=== PATIENT | female | born 1975 | race Caucasian/White ===

== ENCOUNTER 2016-05-14 10:54 | Emergency (ER) | payer OTHER ==
--- NOTE | 2016-05-14 12:28 | RAD ---
KNEE- LEFT 4 OR MORE VIEWS COMPARISON: None. HISTORY: Fall with left knee medial pain. FINDINGS: Views: Left knee AP, internal rotation, external rotation, and lateral Alignment: Normal. Bones: No fracture. Joints: Normal. Soft tissues: Incidentally noted tiny ossicle anterior to the patella. IMPRESSION: 1. Normal study. No fracture.
[2016-05-14] MEDS ORDERED: IBUPROFEN 600 MG TABLET ONE (12:40)
[2016-05-14] MEDS ORDERED: ACETAMINOPHEN 325 MG TABLET ONE (12:41)
== END 2016-05-14 13:28 | disposition home or self-care (01) ==
LOC: ED 10:54
DX: M25.562 Pain in left knee (principal); J45.909 Unspecified asthma, uncomplicated; F17.210 Nicotine dependence, cigarettes, uncomplicated; W01.0XXA Fall on same level from slipping, tripping and stumbling without subsequent striking against object, initial encounter; Y93.02 Activity, running; Y92.009 Unspecified place in unspecified non-institutional (private) residence as the place of occurrence of the external cause
CPT/HCPCS: 73564; 99283 ×2; A9270 ×2